=== PATIENT | female | born 1955 | race African-American/Black ===

== ENCOUNTER 2022-11-25 12:55 | Inpatient (IN) | payer MEDICARE, MEDICAID ==
[~2022-11-25] VITALS: Ht 172.7 cm; Wt 98.6 kg
[2022-11-25] MEDS ORDERED: methylPREDNISolone SOD SUCC 125 MG/2 ML VL IV ONE (13:00)
[2022-11-25 13:32] LABS: Basophils # (auto) 0 10 ^3/uL (0-0.2); Basophils % (auto) 0.7 % (0.0-2.0); Eosinophils # (auto) 0.2 10 ^3/uL (0-0.8); Mean Corpuscular Volume 84.9 fL (80.0-100.0); Monocytes # (auto) 0.7 10 ^3/uL (0-1.3); Neutrophils # (auto) 4.4 10 ^3/uL (1.6-8.6)
[2022-11-25 13:34] LABS: Eosinophils % (auto) 2.9 % (0.0-7.0); Hemoglobin 10.9 g/dL (12.2-16.2); Lymphocytes # (auto) 0.9 10 ^3/uL (0.4-5.4); Mean Corpuscular Hemoglobin 25.6 pg (28.0-32.0); Mean Corpuscular Hgb Conc. 30.2 g/dL (32.0-36.0); Monocytes % (auto) 11.8 % (0.0-12.0); Neutrophils % (auto) 70.6 % (37.0-80.0); Nucleated Red Blood Cells % 2.4 %; Red Blood Cells 4.24 10^6/uL (4.0-5.20); Red Cell Distribution Width 18.5 % (11.8-14.3); White Blood Cell 6.2 10^3/uL (4.4-10.8)
[2022-11-25 13:47] LABS: BUN/Creatinine Ratio 21.1; Magnesium 2.4 mg/dL (1.6-2.6)
[2022-11-25 13:50] LABS: Bilirubin, Total 0.9 mg/dL (0.2-1.0); Total Protein 6.3 g/dL (6.4-8.2)
[2022-11-25] MEDS ORDERED: LORazepam 2MG/ML-1ML VIAL IV ONE (14:30)
[2022-11-25] MEDS ORDERED: SODIUM CHLORIDE 0.9% 1,000 ML IV SCH (15:00)
[2022-11-25] MEDS ORDERED: PANTOPRAZOLE 40 MG/10 ML VIAL INJ IV ONE (15:00)
[2022-11-25 15:11] LABS: Potassium 4.4 mmol/L (3.5-5.1)
[2022-11-25] MEDS ORDERED: FUROSEMIDE 40 MG/4 ML VIAL IV ONE (15:15)
[2022-11-25] MEDS ORDERED: ALBUTEROL MEDNEB 2.5 mg/3ml NEB NEB PRN (15:15)
[2022-11-25 15:18] VITALS: BP 117/85
[2022-11-25 15:51] LABS: Cholesterol 105 mg/dL (< 200); Triglycerides 51 mg/dL (< 150)
[2022-11-25 15:53] LABS: HDL Cholesterol 51 mg/dL (40-59); LDL Cholesterol 49 mg/dL (< 100)
[2022-11-25] MEDS ORDERED: ALBUTEROL MEDNEB 2.5 mg/3ml NEB NEB SCH (18:00)
[2022-11-25] MEDS: IPRATROPIUM BROM 0.5 MG/2.5ML INH SOL NEB SCH ×2 (19:02→22:32)
[2022-11-25] MEDS: ALBUTEROL MEDNEB 2.5 mg/3ml NEB NEB SCH ×2 (19:02→22:32)
[2022-11-25] MEDS: methylPREDNISolone SOD SUCC 125 MG/2 ML VL IV SCH (23:12)
[2022-11-26] VITALS (7 sets, daily range): BP systolic 132–159; BP diastolic 81–111
[2022-11-26] MEDS: ALBUTEROL MEDNEB 2.5 mg/3ml NEB NEB SCH ×6 (03:41→22:31)
[2022-11-26] MEDS: IPRATROPIUM BROM 0.5 MG/2.5ML INH SOL NEB SCH ×6 (03:41→22:31)
[2022-11-26 06:06] LABS: Basophils # (auto) 0 10 ^3/uL (0-0.2); Eosinophils # (auto) 0 10 ^3/uL (0-0.8); Hemoglobin 10.7 g/dL (12.2-16.2); Lymphocytes # (auto) 0.8 10 ^3/uL (0.4-5.4); Monocytes # (auto) 0.1 10 ^3/uL (0-1.3)
[2022-11-26 06:09] LABS: Basophils % (auto) 0.2 % (0.0-2.0); Hematocrit 35.1 % (36.0-46.0); Lymphocytes % (auto) 15.1 % (10.0-50.0); Mean Corpuscular Hemoglobin 25.6 pg (28.0-32.0); Mean Corpuscular Hgb Conc. 30.4 g/dL (32.0-36.0); Monocytes % (auto) 1.7 % (0.0-12.0); Neutrophils # (auto) 4.3 10 ^3/uL (1.6-8.6); Nucleated Red Blood Cells % 1.2 %; Red Blood Cells 4.18 10^6/uL (4.0-5.20); Red Cell Distribution Width 18.4 % (11.8-14.3); White Blood Cell 5.2 10^3/uL (4.4-10.8)
[2022-11-26] MEDS: PANTOPRAZOLE 40 MG/10 ML VIAL INJ IV SCH (10:23)
[2022-11-26] MEDS: ENOXAPARIN SOD 40 MG/0.4 ML SYRINGE SC SCH (10:24)
[2022-11-26] MEDS: methylPREDNISolone SOD SUCC 125 MG/2 ML VL IV SCH (10:24)
[2022-11-26] MEDS ORDERED: FUROSEMIDE 40 MG/4 ML VIAL IV ONE (10:30)
[2022-11-26 10:46] LABS: BUN/Creatinine Ratio 21.3; Calcium 8.5 mg/dL (8.5-10.1); Magnesium 2.3 mg/dL (1.6-2.6); Potassium 4.4 mmol/L (3.5-5.1)
[2022-11-26] MEDS: FUROSEMIDE 40 MG/4 ML VIAL IV SCH (18:31)
[2022-11-27] MEDS: ALBUTEROL MEDNEB 2.5 mg/3ml NEB NEB SCH ×6 (02:00→22:11)
[2022-11-27] MEDS: IPRATROPIUM BROM 0.5 MG/2.5ML INH SOL NEB SCH ×6 (02:00→22:11)
[2022-11-27 05:00] VITALS: BP 156/97
[2022-11-27] MEDS: FUROSEMIDE 40 MG/4 ML VIAL IV SCH ×2 (06:03→17:37)
[2022-11-27 09:00] VITALS: BP 154/87
[2022-11-27] MEDS ORDERED: HALOPERIDOL LACTATE 5 MG/ML INJ VIAL IM PRN (10:00)
[2022-11-27] MEDS ORDERED: QUEtiapine FUMARATE 25 MG TAB PO ONE (10:00)
[2022-11-27] MEDS ORDERED: FUROSEMIDE 40 MG/4 ML VIAL IV ONE (10:00)
[2022-11-27] MEDS: PANTOPRAZOLE 40 MG/10 ML VIAL INJ IV SCH (11:25)
[2022-11-27] MEDS: ENOXAPARIN SOD 40 MG/0.4 ML SYRINGE SC SCH (11:25)
[2022-11-27 13:00] VITALS: BP 125/81
[2022-11-27 13:07] LABS: Urine Bacteria MOD /hpf (None Seen); Urine Blood Negative /uL (Negative); Urine Hyaline Cast FEW /lpf (0 - 2); Urine Specific Gravity 1.007 (1.001-1.035); Urine WBC 4 /hpf (0 - 5)
[2022-11-27 13:26] LABS: Albumin 3.1 g/dL (3.4-5.0); Calcium 8.3 mg/dL (8.5-10.1)
[2022-11-27 13:29] LABS: BUN/Creatinine Ratio 30.1; Bilirubin, Total 0.6 mg/dL (0.2-1.0); Hematocrit 35.4 % (36.0-46.0); Mean Corpuscular Hemoglobin 25.9 pg (28.0-32.0); Mean Corpuscular Hgb Conc. 30.9 g/dL (32.0-36.0); Mean Corpuscular Volume 83.7 fL (80.0-100.0); Red Blood Cells 4.23 10^6/uL (4.0-5.20); Red Cell Distribution Width 18.3 % (11.8-14.3); Total Protein 6.5 g/dL (6.4-8.2); White Blood Cell 8.4 10^3/uL (4.4-10.8)
[2022-11-27 13:39] LABS: Band Neutrophils % (manual) 0; Basophils % (manual) 0 (0.0-2.0); Blast Cells 0; Eosinophils % (manual) 0 (0-7); Metamyelocytes % 0; Myelocytes % 0; Promyelocytes % 0; Reactive Lymphocytes 0
[2022-11-27 14:59] LABS: Lymphocytes % (manual) 21 (10.0-50.0); Monocytes % (manual) 19 (0-12)
[2022-11-27 17:00] VITALS: BP 137/82
[2022-11-27] MEDS: QUEtiapine FUMARATE 25 MG TAB PO SCH (21:22)
[2022-11-27 22:00] VITALS: BP 138/76
[2022-11-28] VITALS (7 sets, daily range): BP systolic 119–146; BP diastolic 69–87
[2022-11-28] MEDS: IPRATROPIUM BROM 0.5 MG/2.5ML INH SOL NEB SCH ×6 (02:07→21:47)
[2022-11-28] MEDS: ALBUTEROL MEDNEB 2.5 mg/3ml NEB NEB SCH ×6 (02:07→21:47)
[2022-11-28] MEDS: FUROSEMIDE 40 MG/4 ML VIAL IV SCH ×2 (06:35→18:07)
[2022-11-28] MEDS: PANTOPRAZOLE 40 MG/10 ML VIAL INJ IV SCH (09:43)
[2022-11-28] MEDS: ENOXAPARIN SOD 40 MG/0.4 ML SYRINGE SC SCH (09:44)
[2022-11-28 15:58] LABS: Potassium 3.4 mmol/L (3.5-5.1)
[2022-11-28 16:04] LABS: BUN/Creatinine Ratio 35.4; Calcium 8.6 mg/dL (8.5-10.1)
[2022-11-28] MEDS: QUEtiapine FUMARATE 25 MG TAB PO SCH (21:52)
[2022-11-29] VITALS (7 sets, daily range): BP systolic 87–150; BP diastolic 51–90
[2022-11-29] MEDS: IPRATROPIUM BROM 0.5 MG/2.5ML INH SOL NEB SCH ×6 (02:08→22:03)
[2022-11-29] MEDS: ALBUTEROL MEDNEB 2.5 mg/3ml NEB NEB SCH ×6 (02:08→22:03)
[2022-11-29] MEDS: FUROSEMIDE 40 MG/4 ML VIAL IV SCH ×2 (06:52→17:21)
[2022-11-29] MEDS ORDERED: POTASSIUM CHL 20 Meq TABLET PO ONE ×2 (10:00→21:15)
[2022-11-29] MEDS: PANTOPRAZOLE 40 MG/10 ML VIAL INJ IV SCH (10:03)
[2022-11-29] MEDS: ENOXAPARIN SOD 40 MG/0.4 ML SYRINGE SC SCH (10:03)
[2022-11-29] MEDS ORDERED: CEFTRIAXONE SODIUM 2 GM in D5W 5% 50 ML IV ONE (10:45)
[2022-11-29] MEDS ORDERED: AZITHROMYCIN 500MG/ 250ML 250 ML IV ONE (10:45)
[2022-11-29 10:58] LABS: BUN/Creatinine Ratio 33.3; Calcium 8.5 mg/dL (8.5-10.1); Potassium 3.1 mmol/L (3.5-5.1)
[2022-11-29] MEDS ORDERED: MAALOX PLUS or MAALOX 30 ML PO ONE (11:00)
[2022-11-29] MEDS ORDERED: MAALOX PLUS or MAALOX 30 ML PO PRN (11:00)
[2022-11-29] MEDS: methylPREDNISolone SOD SUCC 40 MG/ML VL IV SCH ×2 (15:56→21:53)
[2022-11-29] MEDS: QUEtiapine FUMARATE 25 MG TAB PO SCH (21:53)
[2022-11-30] MEDS: IPRATROPIUM BROM 0.5 MG/2.5ML INH SOL NEB SCH ×6 (02:17→22:52)
[2022-11-30] MEDS: ALBUTEROL MEDNEB 2.5 mg/3ml NEB NEB SCH ×6 (02:18→22:52)
[2022-11-30 05:00] VITALS: BP 132/78
[2022-11-30] MEDS: FUROSEMIDE 40 MG/4 ML VIAL IV SCH (05:30)
[2022-11-30] MEDS: methylPREDNISolone SOD SUCC 40 MG/ML VL IV SCH ×2 (05:30→22:43)
[2022-11-30] MEDS: cefTRIAXone 1GM/50ML D5W 50 ML IV SCH (08:16)
[2022-11-30 08:20] VITALS: BP 107/79
[2022-11-30 09:00] VITALS: BP 107/79
[2022-11-30] MEDS: AZITHROMYCIN 500MG/ 250ML 250 ML IV SCH (09:00)
[2022-11-30] MEDS: ENOXAPARIN SOD 40 MG/0.4 ML SYRINGE SC SCH (09:00)
[2022-11-30 09:15] LABS: Basophils # (auto) 0 10 ^3/uL (0-0.2); Basophils % (auto) 0.3 % (0.0-2.0); Eosinophils # (auto) 0 10 ^3/uL (0-0.8); Hematocrit 36.7 % (36.0-46.0); Hemoglobin 11.4 g/dL (12.2-16.2); Lymphocytes # (auto) 0.6 10 ^3/uL (0.4-5.4); Lymphocytes % (auto) 10.1 % (10.0-50.0); Mean Corpuscular Hemoglobin 25.7 pg (28.0-32.0); Monocytes # (auto) 0.2 10 ^3/uL (0-1.3); Monocytes % (auto) 2.6 % (0.0-12.0); Neutrophils # (auto) 5.1 10 ^3/uL (1.6-8.6); Nucleated Red Blood Cells % 0.2 %; Red Blood Cells 4.42 10^6/uL (4.0-5.20); Red Cell Distribution Width 18.3 % (11.8-14.3); White Blood Cell 5.9 10^3/uL (4.4-10.8)
[2022-11-30 09:58] LABS: Potassium 3.6 mmol/L (3.5-5.1)
[2022-11-30 10:08] LABS: Albumin 3.4 g/dL (3.4-5.0); Bilirubin, Total 0.8 mg/dL (0.2-1.0); Calcium 8.8 mg/dL (8.5-10.1); Magnesium 2.2 mg/dL (1.6-2.6); Total Protein 6.5 g/dL (6.4-8.2)
[2022-11-30] MEDS ORDERED: POTASSIUM CHL 20 Meq TABLET PO ONE (11:45)
[2022-11-30 13:00] VITALS: BP 148/104
[2022-11-30] MEDS: SILDENAFIL CITRATE 20 MG TAB PO SCH ×2 (13:42→23:05)
[2022-11-30 17:00] VITALS: BP 131/78
[2022-11-30] MEDS: BUMETANIDE 2.5mg/10ml (0.25 mg/ml) INJ IV SCH (17:25)
[2022-11-30] MEDS: ACETAMINOPHEN 325 MG TAB PO PRN (20:40)
[2022-11-30] MEDS ORDERED: SODIUM CHLORIDE 0.9% 500 ML IV ONE (21:00)
[2022-11-30] MEDS: QUEtiapine FUMARATE 25 MG TAB PO SCH (22:43)
[2022-11-30 23:05] VITALS: BP 139/89
[2022-11-30] MEDS ORDERED: MORPHINE SULFATE INJ 2 MG/ml SYRG IV ONE (23:45)
[2022-12-01] MEDS: ALBUTEROL MEDNEB 2.5 mg/3ml NEB NEB SCH ×6 (02:20→22:53)
[2022-12-01] MEDS: IPRATROPIUM BROM 0.5 MG/2.5ML INH SOL NEB SCH ×6 (02:20→22:53)
[2022-12-01 05:00] VITALS: BP 138/74
[2022-12-01] MEDS: BUMETANIDE 2.5mg/10ml (0.25 mg/ml) INJ IV SCH ×2 (05:31→17:50)
[2022-12-01 08:00] VITALS: BP 118/64
[2022-12-01] MEDS: SILDENAFIL CITRATE 20 MG TAB PO SCH ×3 (08:34→21:50)
[2022-12-01] MEDS: cefTRIAXone 1GM/50ML D5W 50 ML IV SCH (08:34)
[2022-12-01] MEDS: ENOXAPARIN SOD 40 MG/0.4 ML SYRINGE SC SCH (09:52)
[2022-12-01] MEDS: methylPREDNISolone SOD SUCC 40 MG/ML VL IV SCH ×2 (09:52→21:50)
[2022-12-01] MEDS: AZITHROMYCIN 500MG/ 250ML 250 ML IV SCH (09:53)
[2022-12-01 10:39] LABS: BUN/Creatinine Ratio 41.1; Calcium 8.7 mg/dL (8.5-10.1); Potassium 3.6 mmol/L (3.5-5.1)
[2022-12-01] MEDS ORDERED: guaiFENesin-DM 100/10mg/5ml SYR PO PRN (18:45)
[2022-12-01] MEDS: QUEtiapine FUMARATE 25 MG TAB PO SCH (21:51)
[2022-12-02] VITALS (7 sets, daily range): BP systolic 138–154; BP diastolic 75–98
[2022-12-02] MEDS: ACETAMINOPHEN 325 MG TAB PO PRN ×4 (01:42→22:07)
[2022-12-02] MEDS: IPRATROPIUM BROM 0.5 MG/2.5ML INH SOL NEB SCH ×7 (02:14→22:42)
[2022-12-02] MEDS: ALBUTEROL MEDNEB 2.5 mg/3ml NEB NEB SCH ×6 (02:15→22:31)
[2022-12-02] MEDS: BUMETANIDE 2.5mg/10ml (0.25 mg/ml) INJ IV SCH ×2 (05:58→18:13)
[2022-12-02] MEDS: SILDENAFIL CITRATE 20 MG TAB PO SCH ×3 (09:08→22:04)
[2022-12-02] MEDS: cefTRIAXone 1GM/50ML D5W 50 ML IV SCH (09:08)
[2022-12-02] MEDS: methylPREDNISolone SOD SUCC 40 MG/ML VL IV SCH ×2 (09:40→22:04)
[2022-12-02] MEDS: AZITHROMYCIN 500MG/ 250ML 250 ML IV SCH (09:41)
[2022-12-02] MEDS: ENOXAPARIN SOD 40 MG/0.4 ML SYRINGE SC SCH (09:41)
[2022-12-02 14:10] LABS: BUN/Creatinine Ratio 28.2; Calcium 9.1 mg/dL (8.5-10.1); Potassium 3.9 mmol/L (3.5-5.1)
[2022-12-02] MEDS: QUEtiapine FUMARATE 25 MG TAB PO SCH (22:05)
[2022-12-03] MEDS: ALBUTEROL MEDNEB 2.5 mg/3ml NEB NEB SCH ×4 (02:05→13:48)
[2022-12-03] MEDS: IPRATROPIUM BROM 0.5 MG/2.5ML INH SOL NEB SCH ×4 (02:05→13:48)
[2022-12-03 05:06] VITALS: BP 145/86
[2022-12-03] MEDS: BUMETANIDE 2.5mg/10ml (0.25 mg/ml) INJ IV SCH (05:16)
[2022-12-03 08:41] VITALS: BP 166/96
[2022-12-03] MEDS: ACETAMINOPHEN 325 MG TAB PO PRN (08:45)
[2022-12-03] MEDS: SILDENAFIL CITRATE 20 MG TAB PO SCH ×2 (08:45→14:58)
[2022-12-03] MEDS: methylPREDNISolone SOD SUCC 40 MG/ML VL IV SCH (08:45)
[2022-12-03] MEDS: AZITHROMYCIN 500MG/ 250ML 250 ML IV SCH (08:46)
[2022-12-03] MEDS: cefTRIAXone 1GM/50ML D5W 50 ML IV SCH (08:46)
[2022-12-03] MEDS: ENOXAPARIN SOD 40 MG/0.4 ML SYRINGE SC SCH (08:46)
[2022-12-03 11:10] VITALS: BP 143/84
[2022-12-03 13:09] VITALS: BP 160/100
[2022-12-03] MEDS ORDERED: ALBUTEROL SULF 2.5 MG/0.5ML(0.5%) NEB SOLN ONE (13:42)
== END 2022-12-03 16:20 | disposition hospice, home (50) | DRG 177 ==
LOC: EDBD 12:55 → ER 12:55 → OVERFLOW 14:57 → CENTRAL 21:33 → TELE-CENTR 11-27 10:26
PROVIDERS: ADMIT Nurse Practitioner Family; ATTEND Internal Medicine
PROC: 5A09357 Assistance with Respiratory Ventilation, Less than 24 Consecutive Hours, Continuous Positive Airway Pressure (ICD-10-PCS; principal; 2022-11-25)
PROC: 5A09357 Assistance with Respiratory Ventilation, Less than 24 Consecutive Hours, Continuous Positive Airway Pressure (ICD-10-PCS; 2022-11-26)
PROC: 5A09357 Assistance with Respiratory Ventilation, Less than 24 Consecutive Hours, Continuous Positive Airway Pressure (ICD-10-PCS; 2022-11-27)
PROC: 5A09357 Assistance with Respiratory Ventilation, Less than 24 Consecutive Hours, Continuous Positive Airway Pressure (ICD-10-PCS; 2022-11-28)
PROC: 5A09357 Assistance with Respiratory Ventilation, Less than 24 Consecutive Hours, Continuous Positive Airway Pressure (ICD-10-PCS; 2022-11-30)
PROC: 5A09357 Assistance with Respiratory Ventilation, Less than 24 Consecutive Hours, Continuous Positive Airway Pressure (ICD-10-PCS; 2022-12-01)
PROC: 5A09357 Assistance with Respiratory Ventilation, Less than 24 Consecutive Hours, Continuous Positive Airway Pressure (ICD-10-PCS; 2022-12-02)
DX: J15.6 Pneumonia due to other Gram-negative bacteria (principal); I50.41 Acute combined systolic (congestive) and diastolic (congestive) heart failure; J96.21 Acute and chronic respiratory failure with hypoxia; J96.22 Acute and chronic respiratory failure with hypercapnia; E46 Unspecified protein-calorie malnutrition; J44.1 Chronic obstructive pulmonary disease with (acute) exacerbation; J44.0 Chronic obstructive pulmonary disease with (acute) lower respiratory infection; D64.9 Anemia, unspecified; E66.01 Morbid (severe) obesity due to excess calories; I11.0 Hypertensive heart disease with heart failure; I27.20 Pulmonary hypertension, unspecified; R73.03 Prediabetes; Z20.822 Contact with and (suspected) exposure to COVID-19; Z66 Do not resuscitate; R73.9 Hyperglycemia, unspecified; F29 Unspecified psychosis not due to a substance or known physiological condition; Z99.81 Dependence on supplemental oxygen; Z68.34 Body mass index [BMI] 34.0-34.9, adult
CPT/HCPCS: 36415; 36600; 71045; 71250; 80048; 80053; 80061; 81001; 82805; 83036; 83605; 83735; 83880; 84443; 84484; 85007; 85025; 85027; 85379; 87040; 87077; 87086; 87186; 87426; 93005; 93306; 94640; 94660; 96361; 96374; 96375; 97110; 97116; 97163; 99291; C9113; G0378; J0696; J7060